=== PATIENT | female | born 1990 | race Caucasian/White ===

== ENCOUNTER 2024-04-04 18:52 | Inpatient (IN) | payer OTHER ==
[2024-04-04] MEDS ORDERED: Misoprostol 200 MCG TAB PR PRN (19:25)
[2024-04-04] MEDS ORDERED: hydrALAZINE 20 MG/ML VIAL SLOW IVP PRN (19:25)
[2024-04-04] MEDS ORDERED: Carboprost 250 MCG/ML AMP IM PRN (19:25)
[2024-04-04] MEDS ORDERED: Promethazine HCl 25 MG/ML VIAL IM PRN (19:25)
[2024-04-04] MEDS ORDERED: Methylergonovine 0.2 MG/ML VIAL IM PRN (19:25)
[2024-04-04] MEDS ORDERED: Acetaminophen 500 MG TAB PO PRN (19:25)
[2024-04-04] MEDS ORDERED: fentaNYL 50 mcg/mL 1 mL Vial SLOW IVP PRN (19:25)
[2024-04-04] MEDS ORDERED: Lidocaine 1% (PF) 30 ML VIAL SC PRN (19:25)
[2024-04-04] MEDS ORDERED: Tranexamic Acid 1,000 MG/10 ML VIAL IVP PRN (19:25)
[2024-04-04] MEDS ORDERED: Oxytocin 30 units/NS 500 ML 500 ML IV SCH (19:30)
[2024-04-04 19:35] VITALS: BMI 59.0
[2024-04-04 21:08] LABS: Hematocrit 31.5 % (34.9-44.5); Hemoglobin 10.7 g/dL (12.0-15.5); Mean Corpuscular Hemoglobin 31.8 pg (27.0-33.0); Mean Corpuscular Volume 93.5 fL (81.6-98.3); Mean Platelet Volume 10.4 fL (7.4-10.4); Platelet Count 247 10x3/uL (150-450); RBC Distribution Width 15.4 % (11.5-14.5); Red Blood Cell (RBC) Count 3.37 10x6/uL (3.90-5.03); White Blood Cell (WBC) Count 11.73 10x3/uL (3.5-10.5)
[2024-04-04 22:10] LABS: HBsAg Index 0.18 S/CO (0-0.99); Hep B Surf Ag - L&D Non-Reactive S/CO (NonReactive)
[2024-04-04 22:17] LABS: Syphilis Antibody Nonreactive (Nonreactive); Syphilis Antibody Index 0.08 S/CO (<1.00 Non-Reactive)
[2024-04-04] MEDS ORDERED: Penicillin G Potassium 5 MILL.UNITS in Sodium Chloride 0.9% 100 ML IVPB SCH (23:00)
[2024-04-05] MEDS ORDERED: Lactated Ringer's 500 ML IV PRN (00:02)
[2024-04-05] MEDS ORDERED: Moisturizing Cream (Eucerin) 113 GM JAR TOP PRN ×2 (00:02→18:26)
[2024-04-05] MEDS ORDERED: Promethazine HCl 25 MG/ML VIAL IM PRN ×3 (00:02→22:09)
[2024-04-05] MEDS ORDERED: Naloxone HCl 0.4 mg/ml Vial IVP PRN ×4 (00:02→18:26)
[2024-04-05] MEDS ORDERED: diphenhydrAMINE 50 MG/ML VIAL IVP PRN ×2 (00:02→18:26)
[2024-04-05] MEDS ORDERED: ePHEDrine Sulfate 50 MG/10 ML VIAL SLOW IVP PRN (00:02)
[2024-04-05] MEDS ORDERED: Ondansetron PF 4 MG/2 ML Vial IVP PRN ×3 (00:02→18:26)
[2024-04-05] MEDS ORDERED: Communication Order-Pharmacy FS SCH ×2 (00:15→18:30)
[2024-04-05] MEDS: Ondansetron PF 4 MG/2 ML Vial IVP PRN ×2 (06:53→22:56)
[2024-04-05] MEDS: Penicillin G Potassium 5 MILL.UNITS in Sodium Chloride 0.9% 100 ML IVPB SCH (07:42)
[2024-04-05] MEDS: Oxytocin 30 units/NS 500 ML 500 ML IV SCH (08:31)
[2024-04-05] MEDS: fentaNYL 2 mcg/Ropivacaine 0.2% Epidural 100 ML CADD EPIDURAL SCH (09:22)
[2024-04-05] MEDS: Lactated Ringer's 1,000 ML IV SCH (09:31)
[2024-04-05] MEDS: Penicillin G 2.5 MILL.units 2.5 MILL.UNITS in Premix 1 BAG IVPB SCH (11:51)
[2024-04-05] MEDS: Acetaminophen 325 MG TAB PO PRN (15:22)
[2024-04-05] MEDS ORDERED: Oxytocin 30 units/NS 500 ML 500 ML IV SCH (15:45)
[2024-04-05] MEDS: Calcium Carbonate 500 MG ChewTAB PO SCH (15:57)
[2024-04-05] MEDS ORDERED: HYDROmorphone 0.5 MG/0.5 ML SYRINGE SLOW IVP PRN (18:26)
[2024-04-05] MEDS ORDERED: Meperidine HCl/PF 25 MG (1 mL) VIAL SLOW IVP PRN (18:26)
[2024-04-05] MEDS ORDERED: fentaNYL 50 mcg/mL 1 mL Vial SLOW IVP PRN (18:26)
[2024-04-05] MEDS ORDERED: Naloxone HCl 0.4 mg/ml Vial IV PRN (18:26)
[2024-04-05] MEDS ORDERED: Ketorolac Tromethamine 30 MG (1 mL) VIAL IVP SCH (18:30)
[2024-04-05 18:39] LABS: Analyzer IN Cardio CS ER; RapidComm Collect By NUR.EE
[2024-04-05 18:41] LABS: Analyzer IN Cardio CS ER; RapidComm Collect By NUR.EE; pH (Cord, venous) 7.242 (7.250-7.350)
[2024-04-05] MEDS ORDERED: Lanolin Ointment 7 GM TUBE TOP PRN (22:09)
[2024-04-05] MEDS ORDERED: Bisacodyl 10 MG SUPP PR PRN (22:09)
[2024-04-05] MEDS ORDERED: hydrALAZINE 20 MG/ML VIAL SLOW IVP PRN (22:09)
[2024-04-05] MEDS ORDERED: diphenhydrAMINE 25 MG CAP PO PRN (22:09)
[2024-04-05] MEDS: fentaNYL/Ropivacaine Epidural 100 ML ONE (22:16)
[2024-04-05] MEDS: Azithromycin 500 MG VIAL ONE (22:16)
[2024-04-05] MEDS: Dexamethasone 10 MG/ML VIAL ONE (22:17)
[2024-04-05] MEDS: fentaNYL 50 mcg/mL 1 mL Vial ONE (22:17)
[2024-04-05] MEDS: PHENYLEPHRINE-NS 100 MCG/ML 10 ML SYRINGE ONE (22:17)
[2024-04-05] MEDS: Phytonadione Neonatal 1 MG/0.5 ML AMP ONE (22:17)
[2024-04-05] MEDS: CEFAZOLIN 2 GM VIAL ONE (22:17)
[2024-04-05] MEDS: Ondansetron PF 4 MG/2 ML Vial ONE ×2 (22:17→22:18)
[2024-04-05] MEDS: Erythromycin Base 0.5% Oint 1 GM TUBE ONE (22:17)
[2024-04-05] MEDS: KETAMINE 100 MG/ML (5ML VIAL) ONE (22:17)
[2024-04-05] MEDS: Morphine PF 10 MG/10 ML VIAL ONE (22:18)
[2024-04-05] MEDS: ePHEDrine Sulfate 50 MG/10 ML VIAL ONE (22:18)
[2024-04-05] MEDS: Ketorolac Tromethamine 30 MG (1 mL) VIAL IVP PRN (23:40)
[2024-04-06] MEDS: Docusate 100 MG CAP PO SCH ×2 (00:16→08:38)
[2024-04-06] MEDS: Ferrous Sulfate 325 MG TAB PO SCH ×2 (00:16→08:17)
[2024-04-06] MEDS: Ketorolac Tromethamine 30 MG (1 mL) VIAL ONE (00:51)
[2024-04-06 05:53] LABS: Hematocrit 29.9 % (34.9-44.5); Hemoglobin 10.1 g/dL (12.0-15.5); Mean Corpuscular HGB CONC 33.8 g/dL (32.0-36.0); Mean Corpuscular Hemoglobin 31.9 pg (27.0-33.0); Mean Corpuscular Volume 94.3 fL (81.6-98.3); Mean Platelet Volume 10.4 fL (7.4-10.4); Platelet Count 241 10x3/uL (150-450); RBC Distribution Width 15.1 % (11.5-14.5); Red Blood Cell (RBC) Count 3.17 10x6/uL (3.90-5.03); White Blood Cell (WBC) Count 19.02 10x3/uL (3.5-10.5)
[2024-04-06] MEDS: Boostrix 0.5 ML (Tdap) VIAL (>/=7 yrs of age) IM ONE (08:17)
[2024-04-06] MEDS: Penicillin G 2.5 MILL.units 2.5 MILL.UNITS in Premix 1 BAG IVPB SCH (08:18)
[2024-04-06] MEDS: Acetaminophen 325 MG TAB PO PRN (08:37)
[2024-04-06] MEDS: Prenatal Vitamin 1 TAB PO SCH (08:38)
[2024-04-06] MEDS ORDERED: Bupivacaine HCl 0.5%/Epinephrine 1:200,000/PF 30 ml Vial ONE (09:00)
[2024-04-06] MEDS ORDERED: Bupivacaine 0.25% HCL 30 ML VIAL ONE (09:00)
[2024-04-06] MEDS: HYDROcodone/Acetaminophen 5/325 mg Tablet PO PRN (13:00)
[2024-04-06] MEDS: Ibuprofen 800 MG TAB PO SCH (21:59)
[2024-04-07] MEDS: HYDROcodone/Acetaminophen 5/325 mg Tablet PO PRN (10:05)
[2024-04-07] MEDS: Simethicone Chewable 80 MG TAB PO PRN (14:07)
[2024-04-08 07:46] VITALS: BP 123/70; TEMP 99.7
== END 2024-04-08 12:15 | disposition home or self-care (01) | DRG 788 ==
LOC: CSHLD 18:52 → CSHPP 04-05 21:40
PROVIDERS: ADMIT Student in an Organized Health Care Education/Training Program; ATTEND Student in an Organized Health Care Education/Training Program
PROC: 0U7C7ZZ Dilation of Cervix, Via Natural or Artificial Opening (ICD-10-PCS; principal; 2024-04-04)
PROC: 3E0P7VZ Introduction of Hormone into Female Reproductive, Via Natural or Artificial Opening (ICD-10-PCS; 2024-04-04)
PROC: 10D00Z1 Extraction of Products of Conception, Low, Open Approach (ICD-10-PCS; 2024-04-05)
DX: O99.214 Obesity complicating childbirth (principal); Z3A.39 39 weeks gestation of pregnancy; Z37.0 Single live birth; E66.01 Morbid (severe) obesity due to excess calories; O76 Abnormality in fetal heart rate and rhythm complicating labor and delivery; O69.81X0 Labor and delivery complicated by cord around neck, without compression, not applicable or unspecified
CPT/HCPCS: 36415; 51702; 82805; 85027; 86780; 86850; 86900; 86901; 87340; J0665; J1100; J1885; J2274; J2405; J2540; J2590; J3010; J7120